=== PATIENT | female | born 1995 | race Caucasian/White ===

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

== ENCOUNTER → 2018-05-13 | Outpatient (CLI) | payer OTHER ==
--- NOTE | 2018-05-14 05:13 | REP ---
Clinical: History of horseshoe kidney. Technique: Real time montanez scale and color evaluation using curved array transducer. Findings: Horseshoe kidney is appreciated. The right moiety measures 14.5 x 4.1 x 4.2 cm. The left moiety measures 12.3 x 5.4 x 2.8 cm. The kidneys appeared joint at the midline inferior poles. No hydronephrosis, nephrolithiasis, cystic or mass lesion appreciated. Bladder is under distended. Impression: Relatively normal horseshoe kidney appreciated. No hydronephrosis. Electronically Signed by Emory Tinoco MD 05/14/2018 05:05 A
== END ==
LOC: M RAD 08:52
PROVIDERS: ATTEND Nurse Practitioner Family
DX: Q63.1 Lobulated, fused and horseshoe kidney (principal)

== ENCOUNTER → 2018-05-26 | Outpatient (CLI) | payer OTHER ==
[~2018-05-26] MED LIST: OMEP40CA2; VALA1TAB2
--- NOTE | 2018-05-26 13:54 | REP ---
KUB: Single view. History: Kidney stone. Comparison KUB: September 24, 2012. Findings: There is a 2-3 mm calcification overlying the lower pole of the left kidney which could be an intrarenal calculus. No other urinary tract calculus is seen. Bowel gas pattern is normal. Psoas margins and flank stripes are intact. No mass or organomegaly seen. Impression: Possible intrarenal calculus lower pole left kidney. Electronically Signed by Faisal Herndon MD 05/26/2018 02:00 P
== END ==
LOC: M SMT 12:57
PROVIDERS: ATTEND Nurse Practitioner Family
DX: N20.0 Calculus of kidney (principal)

== ENCOUNTER 2018-06-02 12:08 | Emergency (ER) | payer OTHER ==
[~2018-06-02] VITALS: Ht 157.5 cm; Wt 76.4 kg
[2018-06-02 12:08] VITALS: BP 136/73
[2018-06-02] MEDS ORDERED: OMEP40CA2 (12:22)
[2018-06-02] MEDS ORDERED: VALA1TAB2 (12:22)
== END 2018-06-02 13:20 | disposition left against medical advice (07) ==
LOC: M ED 12:08
DX: Z53.21 Procedure and treatment not carried out due to patient leaving prior to being seen by health care provider (principal)

== ENCOUNTER → 2018-10-29 | Outpatient (CLI) | payer OTHER ==
[2018-10-29 14:09] LABS: FREE T4 1.08 NG/DL (0.78-1.33); THYROID STIMULATING HORMONE 1.79 uIU/ML (0.463-3.98)
[2018-10-29 14:24] LABS: HEMOGLOBIN A1c 5.5 %
== END ==
LOC: M SMT 10:49
PROVIDERS: ATTEND Obstetrics & Gynecology
DX: N97.9 Female infertility, unspecified (principal)

== ENCOUNTER → 2018-10-29 | Outpatient (REF) | payer OTHER ==
[~2018-10-29] MED LIST changes: -OMEP40CA2; +OMEP40CA97; -VALA1TAB2; +VALA1TAB64
[2018-10-29 22:35] LABS: CHLAMYDIA DNA AMPLIFICATION NEGATIVE (NEGATIVE); GC DNA AMPLIFICATION NEGATIVE (NEGATIVE)
== END ==
LOC: M LAB REF 17:19
PROVIDERS: ATTEND Obstetrics & Gynecology
DX: Z11.3 Encounter for screening for infections with a predominantly sexual mode of transmission (principal)

== ENCOUNTER → 2018-11-25 | Outpatient (CLI) | payer OTHER ==
[~2018-11-25] MED LIST changes: +ISOVUE-370 76% 100ML VIAL (Q9967) As Ordered ONE
[2018-11-25 12:28] LABS: HCG, SERUM QUALITATIVE NEGATIVE (NEGATIVE)
--- NOTE | 2018-11-25 15:17 | REP ---
Hysterosalpingogram: History: Infertility. Horseshoe kidney noted on recent renal sonography. Procedure: Sequential fluoroscopic spot radiographs are obtained. The endometrium is cannulated and contrast was injected by the referring civil engineering professor. Fluoroscopy time is 0.4 minutes. Findings: Sequential spot radiographs document a normal endometrium with uterus tipped somewhat to the left. The isthmic and ampullary segments of the fallopian tubes are symmetrically opacified and normal. Bilateral prompt peritoneal spillage is observed. Impression: Normal hysterosalpingogram. Bilateral tubal patency is observed and documented. Electronically Signed by Faisal Herndon MD 11/25/2018 03:34 P
== END ==
LOC: M RADPRO 10:46
PROVIDERS: ATTEND Obstetrics & Gynecology
DX: N97.9 Female infertility, unspecified (principal)
CPT/HCPCS: 36415; 58340; 74740; 84703; Q9967

== ENCOUNTER → 2019-04-29 | Outpatient (REF) | payer OTHER ==
[~2019-04-29] MED LIST changes: -ISOVUE-370 76% 100ML VIAL (Q9967) As Ordered ONE; +VALA1TAB5; -VALA1TAB64
[2019-04-29 16:51] LABS: BASO # 0.1 10^3/uL (0.0-0.2); BASO % 0.7 % (0.0-1.0); EOS # 0.1 10^3/uL (0.0-0.5); EOS % 0.7 % (0.0-3.0); HEMATOCRIT 42.2 % (36.0-47.0); LYMPH # 2.3 10^3/uL (1.5-5.0); LYMPH % 22.4 % (24.0-44.0); MEAN CORPUSCULAR HEMOGLOBIN 32.2 pg (27.0-33.0); MEAN CORPUSCULAR HGB CONC 33.2 g/dl (32.0-36.5); MONO # 0.7 10^3/uL (0.0-0.8); MONO % 6.8 % (0.0-5.0); NEUTROPHILS # 7.2 10^3/uL (1.5-8.5); PLATELET COUNT, AUTOMATED 321 10^3/uL (150-450); RED BLOOD COUNT 4.35 10^6/uL (4.00-5.40); WHITE BLOOD COUNT 10.4 10^3/uL (4.0-10.0)
[2019-04-29 16:58] LABS: ALBUMIN 4.4 GM/DL (3.2-5.2); ALT/SGPT 24 U/L (12-78); BILIRUBIN,TOTAL 0.7 MG/DL (0.2-1.0); BLOOD UREA NITROGEN 6 MG/DL (7-18); CALCIUM LEVEL 9.4 MG/DL (8.5-10.1); CARBON DIOXIDE LEVEL 26 MEQ/L (21-32); CHLORIDE LEVEL 103 MEQ/L (98-107); CREATININE FOR GFR 0.66 MG/DL (0.55-1.30); GLOMERULAR FILTRATION RATE > 60.0 (>60); GLUCOSE, FASTING 78 MG/DL (70-100); LIPASE 87 U/L (73-393); POTASSIUM SERUM 3.7 MEQ/L (3.5-5.1); SODIUM LEVEL 138 MEQ/L (136-145); TOTAL PROTEIN 8.1 GM/DL (6.4-8.2)
== END ==
LOC: M SFHCCLAY 11:33
PROVIDERS: ATTEND Family Medicine
DX: R11.0 Nausea (principal)

== ENCOUNTER 2019-05-19 12:25 | Emergency (ER) | payer OTHER ==
[~2019-05-19] VITALS: Ht 157.5 cm; Wt 70.1 kg
[2019-05-19] MEDS ORDERED: OMEP-221 (12:38)
[2019-05-19] MEDS ORDERED: METR-265 (12:38)
[2019-05-19] MEDS ORDERED: LANS30CA93 (12:38)
[2019-05-19] MEDS ORDERED: ONDA8TAB10 (12:38)
[2019-05-19] MEDS ORDERED: SUCR1TAB56 (12:38)
[2019-05-19] MEDS ORDERED: CLAR500T97 PO (12:38)
[2019-05-19] MEDS ORDERED: NS 1,000 ML IV ONE (13:00)
[2019-05-19 13:45] LABS: BASO # 0.1 10^3/uL (0.0-0.2); BASO % 0.4 % (0.0-1.0); EOS # 0.1 10^3/uL (0.0-0.5); EOS % 0.5 % (0.0-3.0); HEMOGLOBIN 14.4 g/dl (12.0-15.5); LYMPH # 2.1 10^3/uL (1.5-5.0); LYMPH % 17.4 % (24.0-44.0); MEAN CORPUSCULAR HGB CONC 33.5 g/dl (32.0-36.5); MEAN CORPUSCULAR VOLUME 98.4 fl (80.0-96.0); MONO # 0.8 10^3/uL (0.0-0.8); NEUTROPHILS # 8.9 10^3/uL (1.5-8.5); NEUTROPHILS % 74.3 % (36.0-66.0); PLATELET COUNT, AUTOMATED 279 10^3/uL (150-450); RED BLOOD COUNT 4.37 10^6/uL (4.00-5.40)
[2019-05-19 13:47] LABS: ALBUMIN 4.1 GM/DL (3.2-5.2); BILIRUBIN,DIRECT 0.1 MG/DL (0.0-0.2); BILIRUBIN,TOTAL 0.6 MG/DL (0.2-1.0); TOTAL PROTEIN 7.7 GM/DL (6.4-8.2)
[2019-05-19] MEDS ORDERED: ISOVUE-370 76% 100ML VIAL (Q9967) As Ordered ONE (14:23)
[2019-05-19] MEDS ORDERED: KETOROLAC 30 MG/ML VIAL (J1885) IV ONE (14:45)
--- NOTE | 2019-05-19 14:59 | REP ---
Clinical: Abdominal pain with nausea and vomiting. Technique: Axial contrast enhanced images from the lung bases to the pubic symphysis with coronal and sagittal re-formations using 100 ml Isovue 370 intravenous contrast material. Findings: Lung bases are clear. Visualized heart and pericardium normal. Liver, spleen, pancreas, gallbladder, and bilateral adrenal glands are normal. Congenital horseshoe kidney noted with findings to suggest hydronephrosis involving the left renal moiety and 2 mm nonobstructing left renal calculus. No acute perinephric stranding noted. The enteric system is without obstruction or acute inflammatory process. Appendicolith noted within otherwise normal appearing appendix. Pelvis demonstrates normal bladder and age-appropriate uterus/adnexa. No pelvic fluid or ascites. No free air. No adenopathy. Abdominal aorta and vasculature normal. Musculoskeletal structures demonstrate congenital changes at the level of the lower lumbar spine and proximal sacrum including spina bifida occulta. Impression: 1. Horseshoe kidney with mild hydronephrosis of the left renal moiety and 2 mm nonobstructing calculus. No acute perinephric stranding or hydroureter noted. 2. No acute abdominopelvic pathology appreciated. No ascites, focal inflammatory stranding, or adenopathy. Electronically Signed by Emory Tinoco MD 05/19/2019 02:50 P
[2019-05-19] MEDS ORDERED: METOCLOPRAMIDE INJ 10MG/2ML VIAL (J2765) IV ONE (15:00)
[2019-05-19] MEDS ORDERED: NORC1TAB7 PO (16:55)
[2019-05-19 17:10] VITALS: BP 110/62
== END 2019-05-19 17:12 | disposition home or self-care (01) ==
LOC: M ED 12:25
DX: N20.0 Calculus of kidney (principal); Q63.1 Lobulated, fused and horseshoe kidney; Z79.899 Other long term (current) drug therapy; Z88.0 Allergy status to penicillin
CPT/HCPCS: 74177; 80047; 80076; 81001; 83690; 84702; 85025; 87086; 96361; 96374; 96375; 99284; J1885; J2765; Q9967

== ENCOUNTER → 2019-06-16 | Outpatient (CLI) | payer OTHER ==
[~2019-06-16] MED LIST changes: +CLAR500T97 PO; +LANS30CA93; +METR-265; +NORC1TAB7 PO; +OMEP-221; +ONDA8TAB10; +SUCR1TAB56
== END ==
LOC: M LABSMTC 09:57
PROVIDERS: ATTEND Family Medicine
DX: Z11.59 Encounter for screening for other viral diseases (principal); Z20.828 Contact with and (suspected) exposure to other viral communicable diseases

== ENCOUNTER → 2019-09-29 | Outpatient (REF) | payer OTHER | LOC: M SFHCWAGY 10:45 | PROVIDERS: ATTEND Obstetrics & Gynecology | DX: N97.9 Female infertility, unspecified (principal) ==

== ENCOUNTER → 2020-01-11 | Outpatient (REF) | payer OTHER ==
[2020-01-11 18:12] LABS: HEMATOCRIT 40.1 % (36.0-47.0); HEMOGLOBIN 13.3 g/dl (12.0-15.5); MEAN CORPUSCULAR HEMOGLOBIN 32.8 pg (27.0-33.0); MEAN CORPUSCULAR HGB CONC 33.2 g/dl (32.0-36.5); PLATELET COUNT, AUTOMATED 303 10^3/uL (150-450); RED BLOOD COUNT 4.05 10^6/uL (4.00-5.40); WHITE BLOOD COUNT 11.1 10^3/uL (4.0-10.0)
[2020-01-11 19:20] LABS: HEPATITIS C VIRUS ABY INDEX 0.1 INDEX (<0.8); HIV 1&2 SCREEN CENTAUR NEGATIVE (NEGATIVE)
[2020-01-11 19:58] LABS: CHLAMYDIA DNA AMPLIFICATION NEGATIVE (NEGATIVE); GC DNA AMPLIFICATION NEGATIVE (NEGATIVE)
== END ==
LOC: M PLALAB 14:55
PROVIDERS: ATTEND Obstetrics & Gynecology
DX: Z34.91 Encounter for supervision of normal pregnancy, unspecified, first trimester (principal)

== ENCOUNTER → 2020-03-02 | Outpatient (CLI) | payer OTHER ==
--- NOTE | 2020-03-02 11:48 | REP ---
INDICATION: ANATOMY COMPARISON: None. TECHNIQUE: Transabdominal obstetrical ultrasound with color Doppler evaluation. FINDINGS: Examination demonstrates a single live intrauterine in transverse presentation. motion is identified by technologist. Placenta is noted anterior and grade 0 without evidence for placenta previa or abruption. Amniotic fluid volume is normal. Cervix measures 3.6 cm in length and appears closed.. Gestational age by LMP 20 weeks 6 days with MITRA 07/14/2020. Gestational age by current measurements 20 weeks 5 days with MITRA 07/15/2020. FHR equals 144 beats per minute. BPD: 4.9 cm twenty weeks 5 days HC: 18.4 cm 20 weeks 5 days AC: 15.7 cm 20 weeks 6 days FL: 3.4 cm 20 weeks 5 days HL: 3.2 cm 20 weeks 6 days HC/AC: 1.18 Estimated weight 377 grams (38thpercentile). Anatomical assessment demonstrates normal structures including cranium, choroid plexus, cavum, cerebellum/posterior fossa, facial profile, diaphragm, stomach, cord insertion/three-vessel cord, kidneys/bladder, spine, and extremities. IMPRESSION: 1. Single live intrauterine in transverse lie demonstrating appropriate estimated weight and growth. 2. Limited evaluation of the nose/lips, heart and ventricular outflow tracts noted. Remainder of the anatomical assessment is complete and normal. <Electronically signed by Emory Tinoco > 03/02/20 [id number]
== END ==
LOC: M WHC 10:19
PROVIDERS: ATTEND Advanced Practice Midwife
DX: Z34.01 Encounter for supervision of normal first pregnancy, first trimester (principal); Z3A.20 20 weeks gestation of pregnancy

== ENCOUNTER → 2020-04-01 | Outpatient (CLI) | payer OTHER ==
--- NOTE | 2020-04-02 04:00 | REP ---
INDICATION: F/U ANATOMY COMPARISON: 03/02/2020 TECHNIQUE: Transabdominal obstetrical ultrasound with color Doppler evaluation. FINDINGS: Examination demonstrates a single live intrauterine in cephalic presentation. motion is identified by technologist. Placenta is noted anterior and grade 1 without evidence for placenta previa or abruption. Amniotic fluid volume is normal. Cervix measures 3.2 cm in length and appears closed.. Gestational age by LMP 25 weeks 1 day with MITRA 07/14/2020. Gestational age by current measurements 25 weeks 5 days with MITRA 07/10/2020. FHR equals 139 beats per minute. Estimated weight 865 grams (73rdpercentile). Anatomical assessment demonstrates normal structures including nose/lips, heart/ventricular outflow tracts. IMPRESSION: Single live intrauterine in cephalic presentation demonstrating appropriate estimated weight and growth. In conjunction with prior examination anatomical assessment is complete and normal. <Electronically signed by Emory Tinoco > 04/02/20 035
== END ==
LOC: M WHC 09:03
PROVIDERS: ATTEND Advanced Practice Midwife
DX: Z34.91 Encounter for supervision of normal pregnancy, unspecified, first trimester (principal); Z3A.25 25 weeks gestation of pregnancy

== ENCOUNTER → 2020-04-19 | Outpatient (REF) | payer OTHER ==
[2020-04-19 15:53] LABS: HEMATOCRIT 36.1 % (36.0-47.0); HEMOGLOBIN 11.5 g/dl (12.0-15.5); MEAN CORPUSCULAR HEMOGLOBIN 31.9 pg (27.0-33.0); MEAN CORPUSCULAR HGB CONC 31.9 g/dl (32.0-36.5); MEAN CORPUSCULAR VOLUME 100.3 fl (80.0-96.0); PLATELET COUNT, AUTOMATED 312 10^3/uL (150-450); WHITE BLOOD COUNT 15.3 10^3/uL (4.0-10.0)
== END ==
LOC: M PLALAB 10:47
PROVIDERS: ATTEND Advanced Practice Midwife
DX: Z3A.23 23 weeks gestation of pregnancy (principal)

== ENCOUNTER → 2020-04-28 | Outpatient (REF) | payer OTHER | LOC: M LAB REF 15:51 | PROVIDERS: ATTEND Physician Assistant | DX: J02.9 Acute pharyngitis, unspecified (principal) ==

== ENCOUNTER 2020-06-01 17:31 | Inpatient (IN) | payer OTHER ==
[~2020-06-01] VITALS: Ht 157.5 cm; Wt 82.6 kg
[2020-06-01 17:50] VITALS: BP 119/85
[2020-06-01] MEDS ORDERED: FAMO1TAB25 PO (18:05)
[2020-06-01] MEDS ORDERED: SERT25TA85 PO (18:05)
[2020-06-01] MEDS ORDERED: VALA500T5 PO (18:05)
[2020-06-01] MEDS ORDERED: PRENTAB9 PO (18:05)
[2020-06-01] MEDS ORDERED: LACTATED RINGER'S 1000 ML IV STA (18:29)
[2020-06-01] MEDS ORDERED: OXYTOCIN DRIP 30 UNITS in IV 1 EA IV PRN (18:30)
[2020-06-01] MEDS ORDERED: ACETAMINOPHEN TAB 650MG DOSE (2X325MG) PO PRN (18:30)
[2020-06-01] MEDS ORDERED: ONDANSETRON 4MG/2ML VIAL IV PRN (18:30)
[2020-06-01] MEDS ORDERED: diphenhydrAMINE 50MG CAP PO PRN (18:30)
[2020-06-01] MEDS ORDERED: TRANEXAMIC ACID INJection 1,000 MG in NS 100 ML IV PRN (18:30)
[2020-06-01] MEDS ORDERED: METHYLERGONOVINE MALEATE 0.2 MG/ML VIAL (J2210) IM PRN (18:30)
[2020-06-01] MEDS ORDERED: LIDOCAINE 1% MDV 20ML VIAL INFIL PRN (18:30)
[2020-06-01] MEDS ORDERED: AMPICILLIN SOD 2 GM in D5W MINI-BAG PLUS 100 ML IV STA (18:39)
[2020-06-01 19:13] LABS: HEMATOCRIT 31.7 % (36.0-47.0); HEMOGLOBIN 10.6 g/dl (12.0-15.5); MEAN CORPUSCULAR HEMOGLOBIN 31.5 pg (27.0-33.0); MEAN CORPUSCULAR HGB CONC 33.4 g/dl (32.0-36.5); MEAN CORPUSCULAR VOLUME 94.3 fl (80.0-96.0); PLATELET COUNT, AUTOMATED 299 10^3/uL (150-450); RED BLOOD COUNT 3.36 10^6/uL (4.00-5.40); WHITE BLOOD COUNT 13.9 10^3/uL (4.0-10.0)
[2020-06-01] MEDS ORDERED: ceFAZolin SOD 2 GM in IV 1 EA IV STA (19:15)
[2020-06-01] MEDS: BETAMETHASONE SOLUSPAN 6MG/ML 5ML VIAL (J0702 PER 3MG) IM SCH (19:32)
[2020-06-01 22:05] LABS: AMPHETAMINES URINE REFLEX NEGATIVE (NEGATIVE); BARBITURATES URINE REFLEX NEGATIVE (NEGATIVE); BENZODIAZEPINES URINE REFLEX NEGATIVE (NEGATIVE); COCAINE METABOLITE URINE REFLE NEGATIVE (NEGATIVE); METHADONE URINE REFLEX NEGATIVE (NEGATIVE); OPIATES URINE REFLEX NEGATIVE (NEGATIVE); PHENCYCLIDINE URINE REFLEX NEGATIVE (NEGATIVE)
[2020-06-01 22:06] LABS: CANNABINOIDS URINE REFLEX PENDING CONFIRMATION (NEGATIVE)
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
[2020-06-01] MEDS: LR 1,000 ML IV SCH (22:36)
[2020-06-01] MEDS ORDERED: AMPICILLIN SOD 1 GM in D5W MINI-BAG PLUS 50 ML IV SCH (22:40)
[2020-06-02] VITALS (20 sets, daily range): BP systolic 105–166; BP diastolic 52–104
[2020-06-02] MEDS: ceFAZolin SOD 1 GM in D5W MINI-BAG PLUS 50 ML IV SCH ×3 (03:30→19:33)
[2020-06-02] MEDS: LR 1,000 ML IV SCH ×3 (06:15→19:22)
[2020-06-02] MEDS: BETAMETHASONE SOLUSPAN 6MG/ML 5ML VIAL (J0702 PER 3MG) IM SCH (06:44)
--- NOTE | 2020-06-02 10:04 | IPNPDOC ---
Obstetrical Progress Note Date of Service Jun 02, 2020 Subjective Patient is not feeling any contractions. No VB. +continuous leakage of fluid. No f/c/n/v/FIGUEROA/visual changes/RUQ pain/sob/cp. Objective Vital Signs Date Time Temp Pulse Resp B/P (MAP) Pulse Ox O2 Delivery O2 Flow Rate FiO2 06/02/20 07:40 99.1 62 16 112/64 (80) Assessment Heart Rate (FHR): 110 Variability: Moderate Decelerations: Variable, Intermittent Heart Rate Tracing: Category I Tocometer Contractions: No Sterile Vaginal Examination Dilation: 1cm Effacement (%): 70% Station: -3 Cervical Consistency: Soft Cervical Position: Anterior Postion/Presentation: Cephalic presentation Assessment and Plan Status: Reassuring Group B Streptococcus: Unknown Additional Comments PPROM. 34+ weeks. Patient has received two doses of Betamethasone. Cephalic presentation. Start with Pitocin IOL. STEFANIE BOURNE DO Jun 02, 2020 10:04
[2020-06-02] MEDS ORDERED: OXYTOCIN DRIP 30 UNITS in IV 1 EA IV SCH ×2 (10:05→23:00)
[2020-06-02] MEDS ORDERED: BUTORPHANOL 2 MG/ML INJ (J0595) IV ONE (15:35)
[2020-06-02] MEDS ORDERED: PROMETHAZINE INJ 25 MG/ML VIAL (J2550) IV ONE (15:35)
--- NOTE | 2020-06-02 17:51 | IPNPDOC ---
Obstetrical Progress Note Date of Service Jun 02, 2020 Subjective Patient has become more uncomfortable with her contractions. Continues to have low level LOF. No VB. Denies f/c/n/v/FIGUEROA/sob/cp Objective Vital Signs Date Time Temp Pulse Resp B/P (MAP) Pulse Ox O2 Delivery O2 Flow Rate FiO2 06/02/20 17:22 98.9 72 16 123/67 (85) Assessment Heart Rate Tracing: Category I Tocometer Frequency: every 2-5 min. Sterile Vaginal Examination Dilation: 3 cm Effacement (%): 90% Station: -2 Cervical Consistency: Soft Cervical Position: Anterior Postion/Presentation: Cephalic presentation Assessment and Plan Additional Comments Continue with Pitocin IOL. Overall reassuring maternal and status. STEFANIE BOURNE DO Jun 02, 2020 17:51
[2020-06-02] MEDS ORDERED: FENTANYL 2MCG/ML ROPIVACAINE 0.2% IN 0.9% NACL 100ML IVBAG As Ordered ONE (18:38)
[2020-06-02] MEDS ORDERED: REFRIGERATOR IV KEYS XX PRN (20:50)
[2020-06-02] MEDS ORDERED: diphenhydrAMINE 50MG/ML VIAL (J1200) IV PRN (20:50)
[2020-06-02] MEDS ORDERED: ePHEDrine SULFATE 25 MG/5 ML(5MG/ML) SYRINGE IV PRN (20:50)
[2020-06-02] MEDS ORDERED: LACTATED RINGER'S 1000 ML IV PRN (20:50)
[2020-06-02] MEDS ORDERED: FENTANYL/ROPIVACAINE/NACL BAG 100 ML EPIDURAL SCH (20:50)
[2020-06-02] MEDS ORDERED: EPIDURAL COMMENT XX SCH (20:50)
[2020-06-02] MEDS ORDERED: EPIDURAL/PCA KEYS XX PRN (20:50)
[2020-06-02] MEDS ORDERED: NALOXONE INJ 0.4MG/1ML VIAL (J2310 PER 1MG) IV PRN (20:50)
[2020-06-02] MEDS ORDERED: ONDANSETRON 4MG/2ML VIAL IV PRN ×2 (20:50→23:00)
--- NOTE | 2020-06-02 22:36 | IPNPDOC ---
Obstetrical Progress Note Date of Service Jun 02, 2020 Subjective Patient is comfortable with epidural. No heavy VB. No f/c/n/v/FIGUEROA/sob/cp. Objective Vital Signs Date Time Temp Pulse Resp B/P (MAP) Pulse Ox O2 Delivery O2 Flow Rate FiO2 06/02/20 18:21 99.3 77 20 126/58 (80) Assessment Heart Rate (FHR): 110 Variability: Moderate Decelerations: Variable, Intermittent Tocometer Contractions: Yes Frequency: every 1-5 min. Sterile Vaginal Examination Dilation: complete Effacement (%): 100% Station: +2 Assessment and Plan Status: Reassuring (moderate variability) Anticipate: Vaginal Delivery STEFANIE BOURNE DO Jun 02, 2020 22:36
[2020-06-02 22:52] LABS: CORD GAS ABE A -8.3; CORD GAS HCO3 A 19.7 MEQ/L; CORD GAS O2 SAT A 54.7 %; CORD GAS PCO2 A 49.5 mmHg; CORD GAS PH A 7.217 UNITS; CORD GAS PO2 A 24.5 mmHg; CORD GAS TCO2 A 21.2 MEQ/L
[2020-06-02 22:56] LABS: CORD GAS ABE V -7.2; CORD GAS HCO3 V 18.9 MEQ/L; CORD GAS O2 SAT V 80.2 %; CORD GAS PCO2 V 40.2 mmHg; CORD GAS PH V 7.29 UNITS; CORD GAS PO2 V 35.5 mmHg; CORD GAS SBC V 18.3 MEQ/L; CORD GAS TCO2 V 20.1 MEQ/L
[2020-06-02] MEDS ORDERED: ACETAMINOPHEN TAB 650MG DOSE (2X325MG) PO PRN (23:00)
[2020-06-02] MEDS ORDERED: MEASLES,MUMPS,RUBELLA VACCINE INJ (MMR-II) (90707) SC SCH (23:00)
[2020-06-02] MEDS ORDERED: IBUPROFEN 600MG TAB PO PRN (23:00)
[2020-06-02] MEDS ORDERED: RHOGAM 300 MCG (1500 IU) INJ (J2790) IM SCH (23:00)
[2020-06-02] MEDS ORDERED: IBUPROFEN 800 MG TAB PO PRN (23:00)
[2020-06-02] MEDS ORDERED: DOCUSATE SODIUM 100MG CAPSULE PO PRN (23:00)
[2020-06-02] MEDS ORDERED: ACETAMINOPHEN 500 MG TAB PO PRN (23:00)
[2020-06-02] MEDS ORDERED: LR 1,000 ML IV SCH (23:00)
[2020-06-02] MEDS ORDERED: DIBUCAINE 1% OINTMENT 30GM TOP PRN (23:00)
--- NOTE | 2020-06-02 23:14 | DNPDOC ---
[facility] Delivery Note Delivery Note DATE OF DELIVERY: 06/02/2020 TIME OF DELIVERY: 2240 Spontaneous vaginal delivery, 34+0 weeks. MANUAL LATHE OPERATOR: Dr. Dick Hassan DO FACOG ANESTHESIA: Epidural LACERATION: None ESTIMATED BLOOD LOSS: 300 mL. FINDINGS: 5 pound 2 ounce (2338g) Male infant, Score 6 and 7. Cord gases sent. DELIVERY SUMMARY: The active phase and second stage of labor progressed in normal fashion. She received Pitocin augmentation throughout her labor course. She also received two doses of betamethasone. No maternal fever throughout the labor. The head delivered in the RACHEL position, and restituted LOT. No nuchal cord was noted. The anterior shoulder delivered with gentle downward guidance and the remainder of the body delivered with ease. The baby was placed on the patient's chest. Delayed cord clamping occurred for approximately 1 minute. The cord was then doubly clamped and cut. IV Pitocin was bolused to actively manage the third stage of labor. The placenta delivered intact without any difficulty within 10 minutes of delivery. The uterine fundus was noted to be firm and 2 cm below the umbilicus. Cytotec 1000mg MD administered to maintain uterine tone. The cervix, vagina, vulva and perineum were inspected. No lacerations. Excellent hemostasis was noted. Sponge, needle and instrument counts were correct per protocol. DO FELICITAS Ferrara JONATHAN R. DO Jun 02, 2020 23:14
[2020-06-03 00:57] VITALS: BP 129/79
[2020-06-03 06:00] VITALS: BP 120/59
--- NOTE | 2020-06-03 07:16 | IPNPDOC ---
Progress Note Date of Service: Jun 03, 2020 Day#: 1 Progress Note SUBJECT: Status post . She has been ambulating, voiding spontaneously without issue and tolerating regular diet. Lochia decreasing/minimal. Pain is well-controlled. Denies headache, visual changes, right upper quadrant pain, shortness breath or chest pain. OBJECTIVE: VITAL SIGNS: Within normal limits, afebrile. Alert and oriented times three. Abdomen: Fundus firm at U-2. Soft, NTTP. ASSESSMENT: Status post uncomplicated spontaneous vaginal delivery. Vitals within normal limits, afebrile, hemodynamically stable with no evidence of infection. PLAN: Discharge to home tomorrow. Tylenol and Motrin for pain. Routine instructions/precautions reviewed. Routine PP visit in 6 weeks in clinic. Katarzyna Hassan DO VS, I&O, 24H, Kajal Vital Signs/I&O Vital Signs Date Time Temp Pulse Resp B/P (MAP) Pulse Ox O2 Delivery O2 Flow Rate FiO2 06/03/20 06:00 98.7 88 18 120/59 (79) 06/03/20 00:57 100 Room Air I&O- Last 24 Hours up to 6 AM 06/03/20 06:00 Intake Total 1976 ml Output Total 1500 ml Balance 476 ml Laboratory Data 24H LABS Laboratory Tests 2 06/02/20 22:53: Cord Venous Blood pH 7.290, Cord Venous Blood PCO2 40.2, Cord Venous Blood PO2 35.5, Cord Venous Blood HCO3 18.9, Cord Venous Blood Total CO2 20.1, Cord Venous Base Excess (Actual) -7.2, Cord Venous Base Excess (Standard) 18.3, Cord Venous Blood Oxygen Saturation 80.2 06/02/20 22:54: Cord Arterial Blood pH 7.217, Cord Arterial Blood PCO2 49.5, Cord Arterial Blood PO2 24.5, Cord Arterial Blood HCO3 19.7, Cord Arterial Blood Total CO2 21.2, Cord Arterial Blood Base Excess -8.3, Cord Arterial Base Excess (Standard 17.0, Cord Arterial Bld Oxygen Saturation 54.7 Microbiology Microbiology 06/01/20 Group B Streptococcus Screen (PHILIP), Received Pending STEFANIE HASSAN DO Jun 03, 2020 07:16
[2020-06-03] MEDS: PRENATAL VITAMINS CHEWABLE TABLET PO SCH (07:42)
[2020-06-03 18:11] VITALS: BP 122/66
[2020-06-04 06:00] VITALS: BP 124/75
[2020-06-04] MEDS: PRENATAL VITAMINS CHEWABLE TABLET PO SCH (08:53)
[2020-06-05 23:06] LABS: Cannabinoid Positive (.); GC Carboxy THC 22 ng/mL (Cutoff=10)
== END 2020-06-04 09:53 | disposition home or self-care (01) | DRG 560 ==
LOC: M LDO 17:31 → M LDI 18:27 → M OBS 06-03 00:45
PROVIDERS: ADMIT Advanced Practice Midwife; ATTEND Advanced Practice Midwife
PROC: 10E0XZZ Delivery of Products of Conception, External Approach (ICD-10-PCS; principal; 2020-06-02)
DX: O60.14X0 Preterm labor third trimester with preterm delivery third trimester, not applicable or unspecified (principal); Z3A.33 33 weeks gestation of pregnancy; Z37.0 Single live birth; O42.013 Preterm premature rupture of membranes, onset of labor within 24 hours of rupture, third trimester

== ENCOUNTER → 2020-11-10 | Outpatient (REF) | payer OTHER ==
[~2020-11-10] MED LIST changes: +FAMO10TA50 PO; +OMEP40CA4; -OMEP40CA97; +PRENTAB9 PO; +SERT25TA85 PO; +VALA500T5 PO
== END ==
LOC: M SFHCCLAY 10:26
PROVIDERS: ATTEND Physician Assistant
DX: R05 Cough (principal)

== ENCOUNTER → 2020-11-21 | Outpatient (CLI) | payer OTHER ==
[2020-11-21 19:22] LABS: HEMATOCRIT 37.8 % (36.0-47.0); HEMOGLOBIN 11.8 g/dl (12.0-15.5); MEAN CORPUSCULAR HEMOGLOBIN 26.4 pg (27.0-33.0); MEAN CORPUSCULAR HGB CONC 31.2 g/dl (32.0-36.5); MEAN CORPUSCULAR VOLUME 84.6 fl (80.0-96.0); PLATELET COUNT, AUTOMATED 424 10^3/uL (150-450); RED BLOOD COUNT 4.47 10^6/uL (4.00-5.40); WHITE BLOOD COUNT 16.8 10^3/uL (4.0-10.0)
[2020-11-21 20:43] LABS: HEPATITIS C VIRUS ABY INDEX 0.1 INDEX (<0.8); HIV 1&2 SCREEN CENTAUR NEGATIVE (NEGATIVE)
[2020-11-21 20:47] LABS: ATYPICAL LYMPH 1 % (0-5); BASOPHILS 3 % (0-1); LYMPHOCYTES 38 % (16-44); MONOCYTES 4 % (0-5); NEUTROPHILS 54 % (28-66)
[2020-11-21 20:48] LABS: PLATELET CLUMPS SMALL AMT; PLATELET ESTIMATE NORMAL (NORMAL)
[2020-11-21 20:49] LABS: ANISOCYTOSIS 1+; HYPOCHROMASIA 1+; SMUDGE CELLS 1+
[2020-11-21 20:50] LABS: BURR CELLS 1+; OVALOCYTES 1+
[2020-11-21 20:51] LABS: POLYCHROMASIA 1+; TEAR DROP CELLS 1+
[2020-11-21 21:12] LABS: GC DNA AMPLIFICATION NEGATIVE (NEGATIVE)
== END ==
LOC: M PLALAB 15:18
PROVIDERS: ATTEND Obstetrics & Gynecology
DX: Z34.91 Encounter for supervision of normal pregnancy, unspecified, first trimester (principal); Z36.89 Encounter for other specified antenatal screening

== ENCOUNTER → 2020-12-30 | Outpatient (CLI) | payer OTHER ==
--- NOTE | 2020-12-30 16:30 | REP ---
INDICATION: ANATOMY. COMPARISON: None. TECHNIQUE: Real-time sonographic evaluation of the gravid uterus performed. FINDINGS: Estimated gestational age is20 weeks 0 days, EDC 05/19/2021. Today's measurements indicate appropriate growth. Presentation: Transverse Placenta anterior, grade 1, without evidence of placenta previa. heart rate is recorded at 150 beats per minute. Amniotic fluid is subjectively normal. Closed cervical length is measured at 3.5 cm. Biometry chart: BPD: 45 mm, 19 weeks 4 days, 38th percentile. HC: 175 mm, 20 weeks 0 days, 51st percentile AC: 146 mm, 19 weeks 6 days, 49th percentile Femur length: 33 mm, 20 weeks 2 days, 58th percentile HC to AC ratio: 1.19, normal range 1.06-1.25. Estimated weight: 329g anatomy: Cranium: Grossly normal Lateral Ventricles/Choroid Plexus: Grossly normal Posterior Fossa/Cerebellum: Grossly normal Nose/lips/profile: Grossly normal Four chamber heart: Grossly normal Right ventricular outflow tract: Grossly normal Left ventricular outflow tract: Grossly normal Left-sided stomach: Grossly normal Kidneys: Grossly normal Bladder: Grossly normal Cord Insertion: Grossly normal 3 vessel cord: Grossly normal Spine: Grossly normal IMPRESSION: Viable single intrauterine gestation as above. <Electronically signed by Khoa Hollingsworth > 12/30/20 [id number]
== END ==
LOC: M WHC 09:33
PROVIDERS: ATTEND Obstetrics & Gynecology
DX: Z34.82 Encounter for supervision of other normal pregnancy, second trimester (principal); Z36.89 Encounter for other specified antenatal screening; Z3A.20 20 weeks gestation of pregnancy

== ENCOUNTER → 2021-02-16 | Outpatient (CLI) | payer OTHER ==
[~2021-02-16] MED LIST changes: +CEPH25SS PO; -OMEP-221; +OMEP40CA5; +ONDA-84; -ONDA8TAB10; +PERC5TAB12 PO
[2021-02-16 13:14] LABS: HEMATOCRIT 30.9 % (36.0-47.0); HEMOGLOBIN 9.6 g/dl (12.0-15.5); MEAN CORPUSCULAR HEMOGLOBIN 27.3 pg (27.0-33.0); MEAN CORPUSCULAR HGB CONC 31.1 g/dl (32.0-36.5); MEAN CORPUSCULAR VOLUME 87.8 fl (80.0-96.0); PLATELET COUNT, AUTOMATED 335 10^3/uL (150-450); RED BLOOD COUNT 3.52 10^6/uL (4.00-5.40); WHITE BLOOD COUNT 16.7 10^3/uL (4.0-10.0)
== END ==
LOC: M PLALAB 09:56
PROVIDERS: ATTEND Obstetrics & Gynecology
DX: O09.892 Supervision of other high risk pregnancies, second trimester (principal); Z36.89 Encounter for other specified antenatal screening

== ENCOUNTER → 2021-03-09 | Outpatient (CLI) | payer OTHER ==
[~2021-03-09] MED LIST changes: -CEPH25SS PO; +OMEP-221; -OMEP40CA5; -PERC5TAB12 PO
== END ==
LOC: M LAB 07:17
PROVIDERS: ATTEND Obstetrics & Gynecology
DX: O99.810 Abnormal glucose complicating pregnancy (principal)

== ENCOUNTER 2021-03-26 00:17 | Outpatient (CLI) | payer OTHER ==
[~2021-03-26] VITALS: Ht 157.5 cm; Wt 91.0 kg
[~2021-03-26 00:17] MED LIST changes: -OMEP-221; +OMEP40CA5
[2021-03-26 00:34] VITALS: BP 136/77
[2021-03-26] MEDS ORDERED: LR 1,000 ML IV SCH (01:25)
[2021-03-26] MEDS ORDERED: LR 800 ML IV ONE (01:25)
[2021-03-26] MEDS ORDERED: ONDANSETRON 4MG/2ML VIAL IV ONE (02:00)
[2021-03-26 02:17] LABS: HEMOGLOBIN 8.3 g/dl (12.0-15.5); MEAN CORPUSCULAR HEMOGLOBIN 26.5 pg (27.0-33.0); MEAN CORPUSCULAR HGB CONC 30.7 g/dl (32.0-36.5); MEAN CORPUSCULAR VOLUME 86.3 fl (80.0-96.0); PLATELET COUNT, AUTOMATED 349 10^3/uL (150-450); RED BLOOD COUNT 3.13 10^6/uL (4.00-5.40); WHITE BLOOD COUNT 23.6 10^3/uL (4.0-10.0)
[2021-03-26 02:35] VITALS: BP 135/79
[2021-03-26 03:00] LABS: ALT/SGPT 12 U/L (12-78); BILIRUBIN,TOTAL 0.2 MG/DL (0.2-1.0); BLOOD UREA NITROGEN 10 MG/DL (7-18); CALCIUM LEVEL 8.4 MG/DL (8.5-10.1); CARBON DIOXIDE LEVEL 23 MEQ/L (21-32); CHLORIDE LEVEL 105 MEQ/L (98-107); CREATININE FOR GFR 0.81 MG/DL (0.55-1.30); GLOMERULAR FILTRATION RATE > 60.0 (>60); GLUCOSE, FASTING 103 MG/DL (70-100); POTASSIUM SERUM 3.8 MEQ/L (3.5-5.1); SODIUM LEVEL 138 MEQ/L (136-145); TOTAL PROTEIN 6.1 GM/DL (6.4-8.2)
[2021-03-26] MEDS ORDERED: NS 1,000 ML IV SCH (04:20)
[2021-03-26] MEDS: PERCOCET 5MG/325MG TAB PO PRN ×2 (04:30→10:39)
[2021-03-26 04:34] VITALS: BP 138/68
[2021-03-26] MEDS ORDERED: cefTRIAXone SOD 1 GM in D5W MINI-BAG PLUS 50 ML IV ONE (05:00)
[2021-03-26 05:46] VITALS: BP 136/85
[2021-03-26] MEDS ORDERED: MORPHINE 10 MG/ML 1ML VIAL (J2270) IV ONE (06:00)
[2021-03-26] MEDS ORDERED: CEPH25SS PO (13:57)
[2021-03-26] MEDS ORDERED: PERC5TAB12 PO (13:57)
[2021-03-26 15:26] LABS: HEMATOCRIT 27.1 % (36.0-47.0); HEMOGLOBIN 8.3 g/dl (12.0-15.5); MEAN CORPUSCULAR HEMOGLOBIN 26.7 pg (27.0-33.0); MEAN CORPUSCULAR HGB CONC 30.6 g/dl (32.0-36.5); MEAN CORPUSCULAR VOLUME 87.1 fl (80.0-96.0); PLATELET COUNT, AUTOMATED 384 10^3/uL (150-450); RED BLOOD COUNT 3.11 10^6/uL (4.00-5.40); WHITE BLOOD COUNT 20.8 10^3/uL (4.0-10.0)
== END 2021-03-26 17:00 | disposition home or self-care (01) ==
LOC: M LDO 00:17
PROVIDERS: ATTEND Obstetrics & Gynecology
DX: O26.833 Pregnancy related renal disease, third trimester (principal); Z3A.32 32 weeks gestation of pregnancy; N13.30 Unspecified hydronephrosis; Z88.0 Allergy status to penicillin; Z79.899 Other long term (current) drug therapy; Z20.822 Contact with and (suspected) exposure to COVID-19
CPT/HCPCS: 36415; 59025; 76775; 76815; 76819; 76820; 80053; 81001; 82365; 82731; 85027; 87070; 87086; 87205; 87426; 96361; 96374; 96375; J0696; J2270; J2405

== ENCOUNTER → 2021-04-14 | Outpatient (REF) | payer OTHER ==
[~2021-04-14] MED LIST changes: +CEPH25SS PO; +PERC5TAB12 PO
== END ==
LOC: M SFHCWAGY 16:34
PROVIDERS: ATTEND Obstetrics & Gynecology
DX: O09.893 Supervision of other high risk pregnancies, third trimester (principal); Z36.85 Encounter for antenatal screening for Streptococcus B

== ENCOUNTER → 2021-10-11 | Outpatient (REF) | payer OTHER ==
[~2021-10-11] MED LIST changes: +ACET325C5 PO; +IBUP-1022 PO; +VALT1TAB PO
== END ==
LOC: M PLALAB 16:51
PROVIDERS: ATTEND Obstetrics & Gynecology
DX: Z01.419 Encounter for gynecological examination (general) (routine) without abnormal findings (principal); N89.8 Other specified noninflammatory disorders of vagina; R87.610 Atypical squamous cells of undetermined significance on cytologic smear of cervix (ASC-US)

== ENCOUNTER → 2022-07-27 | Outpatient (REF) | payer OTHER, SELFPAY | LOC: M SFHCWAGY 17:02 | PROVIDERS: ATTEND Nurse Practitioner Family | DX: N89.8 Other specified noninflammatory disorders of vagina (principal) ==

== ENCOUNTER → 2023-04-11 | Outpatient (REF) | payer OTHER ==
[2023-04-11 15:06] LABS: CHLAMYDIA DNA AMPLIFICATION NEGATIVE (NEGATIVE); GC DNA AMPLIFICATION NEGATIVE (NEGATIVE)
== END ==
LOC: M PLALAB 10:14
PROVIDERS: ATTEND Obstetrics & Gynecology
DX: Z12.4 Encounter for screening for malignant neoplasm of cervix (principal); Z11.3 Encounter for screening for infections with a predominantly sexual mode of transmission

== ENCOUNTER → 2023-09-30 | Outpatient (REF) | payer OTHER ==
[2023-09-30 18:28] LABS: ALBUMIN 3.7 G/DL (3.2-5.2); ALKALINE PHOSPHATASE 107 U/L (46-116); ALT/SGPT 18 U/L (7.0-40); AST/SGOT 13 U/L (<34); BILIRUBIN,TOTAL 0.2 MG/DL (0.3-1.2); BLOOD UREA NITROGEN 11 MG/DL (9-23); CALCIUM LEVEL 8.9 MG/DL (8.5-10.1); CARBON DIOXIDE LEVEL 30 MMOL/L (20-31); CHLORIDE LEVEL 106 MMOL/L (98-107); CHOLESTEROL LEVEL 194 MG/DL (<200); CHOLESTEROL RISK RATIO 3.39 (<5); CREATININE FOR GFR 0.68 MG/DL (0.55-1.30); GLOMERULAR FILTRATION RATE > 60.0 (>60); GLUCOSE, FASTING 72 MG/DL (60-100); HDL CHOLESTEROL 57.1 MG/DL (>40); LDL CHOLESTEROL 107.9 MG/DL (<100); NON-HDL-C 136.9 MG/DL; POTASSIUM SERUM 4.5 MMOL/L (3.5-5.1); SODIUM LEVEL 139 MMOL/L (136-145); TOTAL PROTEIN 7.3 G/DL (5.7-8.2); TRIGLYCERIDES LEVEL 145 MG/DL (<150)
[2023-09-30 18:29] LABS: BASO # 0.1 10^3/uL (0.0-0.2); BASO % 0.9 % (0.0-1.0); EOS # 0.4 10^3/uL (0.0-0.5); EOS % 4.6 % (0.0-3.0); HEMATOCRIT 35.8 % (36.0-47.0); HEMOGLOBIN 10.7 g/dl (12.0-15.5); LYMPH # 3.2 10^3/uL (1.5-5.0); LYMPH % 36.8 % (24.0-44.0); MEAN CORPUSCULAR HEMOGLOBIN 23.9 pg (27.0-33.0); MEAN CORPUSCULAR HGB CONC 29.9 g/dl (32.0-36.5); MEAN CORPUSCULAR VOLUME 80.1 fl (80.0-96.0); MONO # 0.6 10^3/uL (0.0-0.8); MONO % 7.1 % (2.0-8.0); NEUTROPHILS # 4.4 10^3/uL (1.5-8.5); NEUTROPHILS % 50.1 % (36.0-66.0); PLATELET COUNT, AUTOMATED 366 10^3/uL (150-450); RED BLOOD COUNT 4.47 10^6/uL (4.00-5.40); WHITE BLOOD COUNT 8.8 10^3/uL (4.0-10.0)
[2023-09-30 18:30] LABS: FREE T4 1.13 NG/DL (0.89-1.76); THYROID STIMULATING HORMONE 1.424 uIU/ML (0.55-4.78)
[2023-09-30 18:49] LABS: HEMOGLOBIN A1c 5.4 % (4.0-6.0)
[2023-10-01 08:09] LABS: IRON (FE) 18 UG/DL (50-170); PERCENT SATURATION 4.1 % (13.2-45.0); TOTAL IRON BINDING CAPACITY 434 UG/DL (250-425)
[2023-10-01 08:12] LABS: VITAMIN B12 LEVEL 617 PG/ML (211-911)
[2023-10-01 08:13] LABS: FOLATE 15.82 NG/ML (>5.4)
== END ==
LOC: M SFHCCLAY 13:33
PROVIDERS: ATTEND Nurse Practitioner Family
DX: L28.2 Other prurigo (principal); I77.6 Arteritis, unspecified; F41.0 Panic disorder [episodic paroxysmal anxiety]; K21.9 Gastro-esophageal reflux disease without esophagitis; E66.9 Obesity, unspecified; Z68.33 Body mass index [BMI] 33.0-33.9, adult

== ENCOUNTER → 2023-10-01 | Outpatient (REF) | payer OTHER | LOC: M SFHCCLAY 06:51 | PROVIDERS: ATTEND Nurse Practitioner Family | DX: D64.9 Anemia, unspecified (principal) ==

== ENCOUNTER → 2024-05-14 | Outpatient (REF) | payer BC, OTHER ==
[2024-05-18 13:44] LABS: HPV APTIMA Not Detected (Not Detected)
== END ==
LOC: M SFHCWAGY 13:28
PROVIDERS: ATTEND Obstetrics & Gynecology
DX: Z12.4 Encounter for screening for malignant neoplasm of cervix (principal)
CPT/HCPCS: 87624; G0123